=== PATIENT | male | born 1995 | race Asian ===

== ENCOUNTER → 2016-05-27 | Emergency (ER) | payer OTHER ==
[~2016-05-27] VITALS: Ht 167.6 cm; Wt 81.5 kg
[~2016-05-27] MED LIST: IBUP-1542 PO
[2016-05-27 20:56] VITALS: Ht 167.6 cm; Wt 81.5 kg
--- NOTE | 2016-05-27 22:41 | RADRPT ---
PROCEDURE: CT Brain without contrast. CLINICAL INDICATION: Pain status post fall TECHNIQUE: A CT of the brain was performed on a GE [email or web address] 64-slice CT scanner utilizing axial imaging from the skull base through the vertex without IV contrast. Multiplanar reformatted images were made. Images were reviewed on a PACS workstation. The CTDIvol is 44.52 mGy and the DLP is 630 .20 mGycm. One of the following 3 dose reduction techniques were used: Automated exposure control; adjustment of the mA and/or kV according to patient size; or use of iterative reconstruction technique. COMPARISON: None FINDINGS: There is no intracranial hemorrhage, mass effect, or midline shift. No extra-axial fluid collection is seen. The ventricles and sulci are normal in size and configuration. The density of the brain is normal, and the perry white matter differentiation appears well-preserved. The visualized scalp and calvarium are remarkable for right parietal and occipital scalp hematoma wi thout underlying fractures. The bilateral orbits are normal. The bilateral paranasal sinuses, mast oid air cells and middle ear cavities are clear. IMPRESSION: 1. No evidence of acute intracranial hemorrhage, infarcts or acute intracranial pathology. 2. Right parietal and occipital scalp hematoma without underlying fractures. 3. Normal noncontrast brain RPTAT: HDC .Siomara Welsh MD, Date Time Electronically viewed and signed by .Siomara Welsh MD, on 05/27/2016 22:40 .C/
--- NOTE | 2016-05-27 22:54 | ERD ---
ER Documentation Chief Complaint Date/Time DATE: 05/27/16 TIME: 22:52 Chief Complaint Pt had sincopal episode 1999, pt hit back of head, loss consciousness. HPI Patient is a 20-year-old male with no medical problems who presents after he passed out. He was walking from his room to the bathroom and passed out and hit the back of his head on the floor. He said that it happens when he gets stressed and is been stressed at work. He did have food today. He feels like his muscles are tight over the body. He has had no treatment as of yet. This happened just prior to arrival. Upon review of old medical records this is the patient's first visit to the ER. He does not currently have a primary doctor. ROS All systems reviewed and are negative except as per history of present illness. Medications Home Meds Active Scripts Ibuprofen* (Motrin*) 600 Mg Tab, 600 MG PO Q6H Y for PAIN AND OR ELEVATED TEMP, #30 TAB Prov:RADHA MACIAS MD 05/27/16 Allergies Allergies: Coded Allergies: No Known Drug Allergies (Verified Allergy, Unknown, 05/27/16) PMhx/Soc Medical and Surgical Hx: pt denies Medical Hx, pt denies Surgical Hx Hx Alcohol Use: No Hx Substance Use: No Hx Tobacco Use: No Smoking Status: Never smoker FmHx Negative for Brugada or Scksh-Zawlqletv-Ojuiv syndrome Family History: No coronary disease Physical Exam Vitals Vital Signs Date Time Temp Pulse Resp B/P Pulse Ox O2 Delivery O2 Flow Rate FiO2 05/27/16 20:56 97.7 64 16 125/67 99 Physical Exam Const: No acute distress Head: Hematoma to the occiput without crepitus Eyes: Normal Conjunctiva ENT: Normal External Ears, Nose and Mouth. Neck: Full range of motion..~ No meningismus. Resp: Clear to auscultation bilaterally Cardio: Regular rate and rhythm, no murmurs Abd: Soft, non tender, non distended. Normal bowel sounds Skin: No petechiae or rashes Back: No midline or flank tenderness Ext: No cyanosis, or edema Neur: Awake and alert Psych: Normal Mood and Affect Procedures/MDM CT brain shows no acute abnormality per radiology other than hematoma of the scalp. EKG read by me: Rate/Rhythm: Regular rate and rhythm at a normal rate Intervals: Normal Impression: No evidence of ischemia or arrhythmia Patient is a 20-year-old male presents with syncope. Patient had a CT scan which does not show any skull fracture or intracranial hemorrhage. EKG shows no signs of ischemia. The patient is otherwise well-appearing with a normal neurologic exam. At this point I believe outpatient management is appropriate. The patient will need to follow-up closely with his primary doctor within 24- 48 hours. Since he does not currently have a primary doctor I will give him information regarding the local clinics. The patient can return for any worsening symptoms. Departure Diagnosis: Primary Impression: Hematoma Additional Impression: Syncope Syncope type: unspecified Qualified Code: R55 - Syncope, unspecified syncope type Condition: Fair Patient Instructions: Syncope, Unk Cause Referrals: [facility] YOU HAVE RECEIVED A MEDICAL SCREENING EXAM AND THE RESULTS INDICATE THAT YOU DO NOT HAVE A CONDITION THAT REQUIRES URGENT TREATMENT IN THE EMERGENCY DEPARTMENT. FURTHER EVALUATION AND TREATMENT OF YOUR CONDITION CAN WAIT UNTIL YOU ARE SEEN IN YOUR DOCTORS OFFICE WITHIN THE NEXT 1-2 DAYS. IT IS YOUR RESPONSIBILITY TO MAKE AN APPOINTMENT FOR FOLOW-UP CARE. IF YOU HAVE A PRIMARY DOCTOR --you should call your primary doctor and schedule an appointment IF YOU DO NOT HAVE A PRIMARY DOCTOR YOU CAN CALL OUR PHYSICIAN REFERRAL HOTLINE AT IF YOU CAN NOT AFFORD TO SEE A PHYSICIAN YOU CAN CHOSE FROM THE FOLLOWING [facility] [address] [facility]. [facility] [address] [facility] [facility] [address] [facility] [facility] [address] [facility]. [facility] [address]. [facility]. [address] Additional Instructions: Call your primary care doctor TOMORROW for an appointment during the next 1-2 days.See the doctor sooner or return here if your condition worsens before your appointment time. RADHA MACIAS MD May 27, 2016 22:54
[2016-05-27 23:36] VITALS: BP 122/67; PULSE 74; RESP 16; TEMP 97.7
== END | disposition home or self-care (01) ==
LOC: FTE 20:45
DX: S00.03XA Contusion of scalp, initial encounter (principal); R55 Syncope and collapse; W22.8XXA Striking against or struck by other objects, initial encounter; Y92.9 Unspecified place or not applicable
CPT/HCPCS: 70450; 82962; 93005; Z7502